=== PATIENT | male | born 1975 | race African-American/Black ===

== ENCOUNTER 2018-05-24 21:36 | Emergency (ER) | payer MEDICARE, OTHER ==
[~2018-05-24] VITALS: Ht 185.4 cm; Wt 86.2 kg
[2018-05-24 21:45] VITALS: BP 129/88
--- NOTE | 2018-05-24 21:54 | PHYS DOC ---
Adult General Chief Complaint Chief Complaint: EARACHE/EAR PAIN HPI HPI Patient is a 42 year old male presents to the ED complaining of left ear pain/ fullness 1 week. Patient states he's has had ear issues on and off for the last 3 years. States he knows he has quite a bit of earwax. States he feels like he has decreased hearing on the left side due to the earwax. States he can hear fine out of the right ear. Denies fever, history of ear infections, nausea/ vomiting, or pressure changes, headache, neck pain, tinnitus or sore throat. Review of Systems Review of Systems Constitutional: Denies fever or chills [] Eyes: Denies change in visual acuity, redness, or eye pain [] HENT: Denies nasal congestion or sore throat [] Respiratory: Denies cough or shortness of breath [] Cardiovascular: No additional information not addressed in HPI [] GI: Denies abdominal pain, nausea, vomiting, bloody stools or diarrhea [] : Denies dysuria or hematuria [] Musculoskeletal: Denies back pain or joint pain [] Integument: Denies rash or skin lesions [] Neurologic: Denies headache, focal weakness or sensory changes [] All other systems were reviewed and found to be within normal limits, except as documented in this note. Physical Exam Physical Exam Constitutional: Well developed, well nourished, no acute distress, non-toxic appearance. [] HENT: Normocephalic, atraumatic, mild bilateral cerumen impaction. whisper hearing test intact, oropharynx moist, no oral exudates, nose normal. [] Eyes: PERRLA, EOMI, conjunctiva normal, no discharge. [] Neck: Normal range of motion, no tenderness, supple, no stridor. [] Cardiovascular:Heart rate regular rhythm, no murmur [] Lungs & Thorax: Bilateral breath sounds clear to auscultation [] Skin: Warm, dry, no erythema, no rash. [] Neurologic: Alert and oriented X 3, normal motor function, normal sensory function, no focal deficits noted. [] Psychologic: Affect normal, judgement normal, mood normal. [] Current Patient Data Vital Signs Vital Signs Date Time Temp Pulse Resp B/P (MAP) Pulse Ox O2 Delivery O2 Flow Rate FiO2 05/24/18 21:45 98.7 89 16 129/88 (102) 97 Room Air 98.7 EKG EKG [] Radiology/Procedures Radiology/Procedures [] Course & Med Decision Making Course & Med Decision Making Pertinent Labs and Imaging studies reviewed. (See chart for details) Cerumen removed with irrigation. No complications. Patient states he is feeling much better. Discussed symptomatic treatment and follow-up outpatient. Discussed reasons to return to the ED. Patient understands and agrees with plan. Dragon Disclaimer Dragon Disclaimer This electronic medical record was generated, in whole or in part, using a voice recognition dictation system. Departure Departure Impression: Primary Impression: Cerumen impaction Disposition: 01 HOME, SELF-CARE Condition: IMPROVED Referrals: MARA ULLOA MD, MICHAEL M MD Patient Instructions: Cerumen Impaction LOPEZ LOPEZ May 24, 2018 21:54
== END 2018-05-24 22:46 | disposition home or self-care (01) ==
LOC: ER 21:36
DX: H61.23 Impacted cerumen, bilateral (principal)
CPT/HCPCS: 69209; 99282